=== PATIENT | female | born 1990 | race Caucasian/White ===

== ENCOUNTER 2017-01-06 13:31 | Emergency (ER) | payer MEDICAID, OTHER ==
[~2017-01-06] VITALS: Ht 160 cm; Wt 92.7 kg
[2017-01-06 13:34] VITALS: BP 120/78
[2017-01-06] MEDS ORDERED: KETOROLAC 30 MG/1 ML ONE (14:27)
[2017-01-06] MEDS ORDERED: HYDROcodone/APAP 5/325 TABLET ONE (14:27)
[2017-01-06] MEDS ORDERED: DIAZEPAM 5 MG TABLET ONE (14:27)
[2017-01-06] MEDS ORDERED: HYDROcodone/APAP 5/325 TABLET PO ONE (14:30)
[2017-01-06] MEDS ORDERED: KETOROLAC 30 MG/1 ML IM ONE (14:30)
[2017-01-06] MEDS ORDERED: DIAZEPAM 5 MG TABLET PO ONE (14:30)
== END 2017-01-06 15:14 | disposition home or self-care (01) ==
LOC: ED 15:00
DX: S39.012A Strain of muscle, fascia and tendon of lower back, initial encounter (principal); X58.XXXA Exposure to other specified factors, initial encounter; Y93.89 Activity, other specified; Y92.89 Other specified places as the place of occurrence of the external cause; Y99.8 Other external cause status
CPT/HCPCS: 96372; 99283; J1885

== ENCOUNTER 2018-02-07 16:13 | Inpatient (IN) | payer MEDICAID ==
[~2018-02-07] VITALS: Ht 160 cm; Wt 94.0 kg
[2018-02-07] MEDS ORDERED: ONDANSETRON 2MG/ML, 2ML ONE (16:47)
[2018-02-07] MEDS ORDERED: HYDROmorphone 2 MG/ML, 1ML ONE (16:47)
[2018-02-07 17:00] LABS: BASOPHILS # (AUTO) 0.01 x10^3/uL (0-0.1); BASOPHILS % (AUTO) 0 % (0-1); EOSINOPHILS # (AUTO) 0.07 x10^3/uL (0-0.4); EOSINOPHILS % (AUTO) 1 % (1-7); LYMPHOCYTES % (AUTO) 10 % (22-44); MD NO; MEAN CORPUSCULAR HEMOGLOBIN 32.4 pg (27.0-34.8); MEAN CORPUSCULAR HGB CONC 33.5 g/dL (32.4-35.8); MEAN CORPUSCULAR VOLUME 96.8 fL (80-100); MEAN PLATELET VOLUME 8.7 fL (7.4-10.4); MONOCYTES # (AUTO) 0.62 x10^3/uL (0.2-0.8); MONOCYTES % (AUTO) 5 % (2-9); NEUTROPHILS % (AUTO) 84 % (42-75); PLATELET COUNT 281 x10^3/uL (130-400); RED BLOOD COUNT 4.59 x10^6/uL (3.82-5.3); RED CELL DISTRIBUTION WIDTH 14.1 % (9.6-15.2)
[2018-02-07] MEDS ORDERED: ONDANSETRON 2MG/ML, 2ML IVPush ONE (17:00)
[2018-02-07] MEDS ORDERED: HYDROmorphone 2 MG/ML, 1ML IVPush PRN (17:00)
[2018-02-07] MEDS ORDERED: SODIUM CHLORIDE FLUSH 10ML SYR IVF ONE (17:00)
[2018-02-07 17:40] LABS: MICROSCOPIC INDICATED
[2018-02-07 17:45] LABS: CULTURE INDICATED? NO
[2018-02-07 17:53] LABS: ALBUMIN 3.5 g/dL (3.4-5.0); ANION GAP 9 mmol/L (5-15); CHLORIDE 102 mmol/L (98-107)
[2018-02-07 17:57] LABS: ALANINE AMINOTRANSFERASE 320 U/L (12-78); ALKALINE PHOSPHATASE 281 U/L (45-117); BILIRUBIN,TOTAL 0.9 mg/dL (0.2-1.0); CREATININE 0.57 mg/dL (0.55-1.02); TOTAL PROTEIN 7.7 g/dL (6.4-8.2)
[2018-02-07] MEDS ORDERED: OMNIPAQUE 350 MG/ML, 100ML BOTTLE ONE (18:25)
[2018-02-07] MEDS ORDERED: AMPICILLIN/SULBACTAM 3 GM in SODIUM CHLORIDE 0.9% 100 ML IVPB ONE (20:00)
[2018-02-07] MEDS ORDERED: PROMETHAZINE 25 MG/ML, 1ML IM PRN (20:30)
[2018-02-07] MEDS ORDERED: ONDANSETRON 2MG/ML, 2ML IVPush PRN (20:30)
[2018-02-07 21:05] VITALS: BP 113/63
[2018-02-07] MEDS: HYDROmorphone 2 MG/ML, 1ML IVPush PRN (21:18)
[2018-02-07] MEDS: D5%-0.9% NACL 1,000 ML IV SCH (21:18)
[2018-02-08 00:45] VITALS: BP 114/73
[2018-02-08] MEDS: AMPICILLIN/SULBACTAM 3 GM in SODIUM CHLORIDE 0.9% 100 ML IV SCH ×4 (02:02→19:39)
[2018-02-08] MEDS: HYDROmorphone 2 MG/ML, 1ML IVPush PRN ×5 (03:18→23:54)
[2018-02-08] MEDS: D5%-0.9% NACL 1,000 ML IV SCH ×3 (03:18→18:49)
[2018-02-08 05:01] LABS: BASOPHILS # (AUTO) 0.03 x10^3/uL (0-0.1); BASOPHILS % (AUTO) 0 % (0-1); EOSINOPHILS # (AUTO) 0.09 x10^3/uL (0-0.4); EOSINOPHILS % (AUTO) 1 % (1-7); LYMPHOCYTES # (AUTO) 0.93 x10^3/uL (1-3.4); LYMPHOCYTES % (AUTO) 10 % (22-44); MD NO; MEAN CORPUSCULAR HEMOGLOBIN 32.1 pg (27.0-34.8); MEAN CORPUSCULAR HGB CONC 33.7 g/dL (32.4-35.8); MEAN CORPUSCULAR VOLUME 95.4 fL (80-100); MEAN PLATELET VOLUME 8.3 fL (7.4-10.4); MONOCYTES # (AUTO) 0.78 x10^3/uL (0.2-0.8); MONOCYTES % (AUTO) 8 % (2-9); NEUTROPHILS # (AUTO) 7.95 x10^3/uL (1.8-6.8); NEUTROPHILS % (AUTO) 81 % (42-75); PLATELET COUNT 257 x10^3/uL (130-400); RED BLOOD COUNT 4.03 x10^6/uL (3.82-5.3); RED CELL DISTRIBUTION WIDTH 14.1 % (9.6-15.2)
[2018-02-08 05:07] LABS: ALBUMIN 2.9 g/dL (3.4-5.0); ANION GAP 7 mmol/L (5-15); CALCIUM 8.2 mg/dL (8.5-10.1); CHLORIDE 105 mmol/L (98-107)
[2018-02-08 05:12] LABS: ALANINE AMINOTRANSFERASE 268 U/L (12-78); ALKALINE PHOSPHATASE 239 U/L (45-117); BILIRUBIN,TOTAL 2.1 mg/dL (0.2-1.0); CREATININE 0.51 mg/dL (0.55-1.02); TOTAL PROTEIN 6.6 g/dL (6.4-8.2)
[2018-02-08 06:50] VITALS: BP 112/73
[2018-02-08] MEDS ORDERED: SUCCINYLCHOLINE 20 MG/ML, 10ML ONE (07:41)
[2018-02-08] MEDS ORDERED: PROPOFOL 10 MG/ML, 20ML ONE ×2 (07:41→08:33)
[2018-02-08] MEDS ORDERED: FENTANYL PF 100 MCG/2ML ONE (07:41)
[2018-02-08] MEDS ORDERED: LABETALOL 5MG/ML, 20ML IV PRN (08:00)
[2018-02-08] MEDS ORDERED: ALBUTEROL SULFATE 2.5 MG/3 ML NPPB PRN (08:00)
[2018-02-08] MEDS ORDERED: ONDANSETRON 2MG/ML, 2ML IV PRN (08:00)
[2018-02-08] MEDS ORDERED: MEPERIDINE/PF 25MG/0.5ML IVPush PRN (08:00)
[2018-02-08] MEDS ORDERED: OXYcodone 5 MG/5 ML ORAL.SOL UDC PO PRN (08:00)
[2018-02-08] MEDS ORDERED: EPHEDRINE 50 MG/ML, 1ML IVPush PRN (08:00)
[2018-02-08] MEDS ORDERED: HYDROmorphone 2 MG/ML, 1ML IV PRN (08:00)
[2018-02-08] MEDS ORDERED: FENTANYL PF 100 MCG/2ML IV PRN (08:00)
[2018-02-08] MEDS ORDERED: LORazepam 2 MG/ML, 1ML IVPush PRN (08:00)
[2018-02-08] MEDS ORDERED: OMNIPAQUE 350 MG/ML, 50 ML BOTTLE ONE (11:39)
[2018-02-08 13:38] VITALS: BP 108/61
[2018-02-08 18:42] VITALS: BP 92/50
[2018-02-09] MEDS: AMPICILLIN/SULBACTAM 3 GM in SODIUM CHLORIDE 0.9% 100 ML IV SCH ×2 (02:09→07:55)
[2018-02-09] MEDS: D5%-0.9% NACL 1,000 ML IV SCH (02:11)
[2018-02-09 03:33] VITALS: BP 95/68
[2018-02-09 05:35] LABS: ALANINE AMINOTRANSFERASE 186 U/L (12-78); ALBUMIN 2.8 g/dL (3.4-5.0); ANION GAP 7 mmol/L (5-15); CALCIUM 8.2 mg/dL (8.5-10.1); CHLORIDE 106 mmol/L (98-107); CREATININE 0.47 mg/dL (0.55-1.02)
[2018-02-09 05:38] LABS: ALKALINE PHOSPHATASE 204 U/L (45-117); BILIRUBIN,TOTAL 0.5 mg/dL (0.2-1.0); TOTAL PROTEIN 6.4 g/dL (6.4-8.2)
[2018-02-09 05:39] LABS: BASOPHILS # (AUTO) 0.05 x10^3/uL (0-0.1); BASOPHILS % (AUTO) 1 % (0-1); EOSINOPHILS # (AUTO) 0.21 x10^3/uL (0-0.4); EOSINOPHILS % (AUTO) 4 % (1-7); LYMPHOCYTES % (AUTO) 27 % (22-44); MD NO; MEAN CORPUSCULAR HEMOGLOBIN 32.4 pg (27.0-34.8); MEAN CORPUSCULAR HGB CONC 33.8 g/dL (32.4-35.8); MEAN CORPUSCULAR VOLUME 95.7 fL (80-100); MEAN PLATELET VOLUME 8.3 fL (7.4-10.4); MONOCYTES # (AUTO) 0.66 x10^3/uL (0.2-0.8); MONOCYTES % (AUTO) 12 % (2-9); NEUTROPHILS # (AUTO) 3.17 x10^3/uL (1.8-6.8); NEUTROPHILS % (AUTO) 57 % (42-75); PLATELET COUNT 221 x10^3/uL (130-400); RED BLOOD COUNT 3.87 x10^6/uL (3.82-5.3); RED CELL DISTRIBUTION WIDTH 13.7 % (9.6-15.2)
[2018-02-09] MEDS: HYDROmorphone 2 MG/ML, 1ML IVPush PRN ×2 (05:47→09:49)
[2018-02-09 07:42] VITALS: BP 104/64
[2018-02-09] MEDS ORDERED: CIPR500T87 PO (10:46)
[2018-02-09] MEDS ORDERED: METR500T PO (10:46)
[2018-02-09 12:54] VITALS: BP 109/69
== END 2018-02-09 15:05 | disposition home or self-care (01) | DRG 920 ==
LOC: SUATTDRO 20:03 → OR 20:06 → EDIP 20:14 → 4NOR 20:45
PROVIDERS: ADMIT Hospitalist; ATTEND Family Medicine
PROC: 0FC98ZZ Extirpation of Matter from Common Bile Duct, Via Natural or Artificial Opening Endoscopic (ICD-10-PCS; 2018-02-08)
PROC: BF101ZZ Fluoroscopy of Bile Ducts using Low Osmolar Contrast (ICD-10-PCS; 2018-02-08)
PROC: 0FPB8DZ Removal of Intraluminal Device from Hepatobiliary Duct, Via Natural or Artificial Opening Endoscopic (ICD-10-PCS; principal; 2018-02-08 08:00)
DX: T85.898A Other specified complication of other internal prosthetic devices, implants and grafts, initial encounter (principal); K80.31 Calculus of bile duct with cholangitis, unspecified, with obstruction; E66.9 Obesity, unspecified; F17.200 Nicotine dependence, unspecified, uncomplicated; K83.8 Other specified diseases of biliary tract; Y83.8 Other surgical procedures as the cause of abnormal reaction of the patient, or of later complication, without mention of misadventure at the time of the procedure; R74.0 Nonspecific elevation of levels of transaminase and lactic acid dehydrogenase [LDH]; Z68.36 Body mass index [BMI] 36.0-36.9, adult; Z90.49 Acquired absence of other specified parts of digestive tract; Y92.89 Other specified places as the place of occurrence of the external cause
CPT/HCPCS: 36415; 74328; 99285; J7042; 74177; 80053; 81001; 81025; 83605; 83690; 83735; 84100; 85025; 87040; 96365; 96375; G0378; J0295; J1170; J2405; J2704; J3010; Q9967; C1769; J0330

== ENCOUNTER 2018-02-14 08:31 | Emergency (ER) | payer MEDICAID ==
[~2018-02-14] VITALS: Ht 160 cm; Wt 91.3 kg
[~2018-02-14 08:31] MED LIST: CIPR500T87 PO; METR500T PO
[2018-02-14 08:35] VITALS: BP 114/56
== END 2018-02-14 09:26 | disposition home or self-care (01) ==
LOC: ED 09:18
DX: I80.8 Phlebitis and thrombophlebitis of other sites (principal); Z90.49 Acquired absence of other specified parts of digestive tract
CPT/HCPCS: 99283

== ENCOUNTER 2018-02-23 17:20 | Emergency (ER) | payer MEDICAID ==
[~2018-02-23] VITALS: Ht 160 cm; Wt 95.0 kg
[2018-02-23 17:31] VITALS: BP 128/80
[2018-02-23] MEDS ORDERED: NAPR220C2 PO (18:18)
[2018-02-23] MEDS ORDERED: IBUPROFEN 200 MG TABLET ONE (18:20)
[2018-02-23] MEDS ORDERED: IBUPROFEN 200 MG TABLET PO ONE (18:30)
== END 2018-02-23 18:43 | disposition home or self-care (01) ==
LOC: ED 18:02
DX: H92.01 Otalgia, right ear (principal); Z87.891 Personal history of nicotine dependence; Z90.49 Acquired absence of other specified parts of digestive tract
CPT/HCPCS: 99283

== ENCOUNTER 2018-03-19 22:17 | Emergency (ER) | payer MEDICAID ==
[~2018-03-19] VITALS: Ht 160 cm; Wt 92.2 kg
[~2018-03-19 22:17] MED LIST changes: +NAPR220C2 PO
[2018-03-19 22:20] VITALS: BP 123/76
[2018-03-19] MEDS ORDERED: KETOROLAC 30 MG/1 ML ONE (22:53)
[2018-03-19] MEDS ORDERED: DIPHENHYDRAMINE 25 MG CAPSULE ONE (22:53)
[2018-03-19] MEDS ORDERED: ACETAMINOPHEN 325 MG TABLET ONE (22:53)
[2018-03-19] MEDS ORDERED: PROCHLORPERAZINE 10MG TABLET ONE (22:56)
[2018-03-19] MEDS ORDERED: ACETAMINOPHEN 325 MG TABLET PO ONE (23:00)
[2018-03-19] MEDS ORDERED: DIPHENHYDRAMINE 25 MG CAPSULE PO ONE (23:00)
[2018-03-19] MEDS ORDERED: PROCHLORPERAZINE 10MG TABLET PO ONE (23:00)
[2018-03-19] MEDS ORDERED: KETOROLAC 30 MG/1 ML IM ONE (23:00)
== END 2018-03-19 23:56 | disposition home or self-care (01) ==
LOC: ED 23:50
DX: G43.009 Migraine without aura, not intractable, without status migrainosus (principal); R05 Cough; Z90.49 Acquired absence of other specified parts of digestive tract
CPT/HCPCS: 71046; 96372; 99284; J1885; Q0163; Q0164

== ENCOUNTER 2018-04-02 06:28 | Emergency (ER) | payer MEDICAID ==
[~2018-04-02] VITALS: Ht 160 cm; Wt 94.7 kg
[2018-04-02 06:29] VITALS: BP 117/80
--- NOTE | 2018-04-02 06:42 | NUR ---
PT PLACED IN A GOWN AND GIVEN A WARM BLANKET. PT AWAITING ERP AND ORDERS.
--- NOTE | 2018-04-02 06:52 | NUR ---
REPORT FROM SUZANNE GRADY
[2018-04-02] MEDS ORDERED: KETOROLAC 30 MG/1 ML ONE (07:00)
[2018-04-02] MEDS: ALBUTEROL/IPRATROPIUM 2.5MG/0.5MG, 3 ML NPPB ONE (07:00)
[2018-04-02] MEDS ORDERED: ALBUTEROL/IPRATROPIUM 2.5MG/0.5MG, 3 ML ONE (07:02)
[2018-04-02] MEDS: KETOROLAC 30 MG/1 ML IM ONE (07:19)
== END 2018-04-02 07:54 | disposition home or self-care (01) ==
LOC: ED 07:43
DX: J98.01 Acute bronchospasm (principal); J02.8 Acute pharyngitis due to other specified organisms; B34.9 Viral infection, unspecified; Z90.49 Acquired absence of other specified parts of digestive tract
CPT/HCPCS: 71046; 94640; 96372; 99283; J1885; J7512; J7620

== ENCOUNTER 2018-05-16 13:42 | Emergency (ER) | payer MEDICAID ==
[~2018-05-16] VITALS: Ht 160 cm; Wt 94.8 kg
[2018-05-16 13:54] VITALS: BP 112/66
--- NOTE | 2018-05-16 15:34 | NUR ---
Patient/Caregiver given discharge instructions and they have confirmed that they understand the instructions. Patient ambulatory with steady gait.
== END 2018-05-16 15:35 | disposition home or self-care (01) ==
LOC: ED 15:15
DX: S60.211A Contusion of right wrist, initial encounter (principal); F17.200 Nicotine dependence, unspecified, uncomplicated; X58.XXXA Exposure to other specified factors, initial encounter; Y93.89 Activity, other specified; Y92.89 Other specified places as the place of occurrence of the external cause; Y99.8 Other external cause status
CPT/HCPCS: 99283

== ENCOUNTER 2018-06-04 01:41 | Emergency (ER) | payer MEDICAID ==
[~2018-06-04] VITALS: Ht 167.6 cm; Wt 70.0 kg
[2018-06-04 01:43] VITALS: BP 142/76
--- NOTE | 2018-06-04 01:43 | NUR ---
PT BIB [facility] C/O SCIATIC PAIN W/ HX OF SAME. PT AMB INTO LOBBY FROM [facility]. ALSO C/O OF R EAR PAIN. CALL LIGHT IN REACH
[2018-06-04] MEDS ORDERED: METHOCARBAMOL 750 MG TABLET PO ONE (02:30)
[2018-06-04] MEDS ORDERED: AMOXICILLIN/CLAV 875-125MG TABLET PO SCH (02:30)
[2018-06-04] MEDS ORDERED: IBUPROFEN 600 MG TABLET PO ONE (02:30)
[2018-06-04] MEDS ORDERED: AMOXICILLIN/CLAV 875-125MG TABLET ONE (02:31)
[2018-06-04] MEDS ORDERED: METHOCARBAMOL 750 MG TABLET ONE (02:31)
[2018-06-04] MEDS ORDERED: IBUPROFEN 600 MG TABLET ONE (02:31)
--- NOTE | 2018-06-04 02:38 | NUR ---
PT MEDICATED PER eMAR
--- NOTE | 2018-06-04 02:43 | NUR ---
Patient/Caregiver given discharge instructions and they have confirmed that they understand the instructions. Patient ambulatory with steady gait.
== END 2018-06-04 02:45 | disposition home or self-care (01) ==
LOC: ED 02:15
DX: M54.41 Lumbago with sciatica, right side (principal); H66.91 Otitis media, unspecified, right ear; G89.29 Other chronic pain
CPT/HCPCS: 99284

== ENCOUNTER 2018-06-10 18:05 | Inpatient (IN) | payer MEDICAID ==
[~2018-06-10] VITALS: Ht 160 cm; Wt 96.3 kg
[2018-06-10] MEDS ORDERED: ONDANSETRON 2MG/ML, 2ML IVPush ONE ×2 (18:30→19:30)
[2018-06-10] MEDS ORDERED: SODIUM CHLORIDE FLUSH 10ML SYR IVF ONE (18:30)
[2018-06-10 18:44] LABS: BASOPHILS # (AUTO) 0.02 x10^3/uL (0-0.1); BASOPHILS % (AUTO) 0 % (0-1); EOSINOPHILS # (AUTO) 0.22 x10^3/uL (0-0.4); EOSINOPHILS % (AUTO) 2 % (1-7); LYMPHOCYTES # (AUTO) 2.23 x10^3/uL (1-3.4); LYMPHOCYTES % (AUTO) 15 % (22-44); MD NO; MEAN CORPUSCULAR HEMOGLOBIN 31.5 pg (27.0-34.8); MEAN CORPUSCULAR HGB CONC 33.1 g/dL (32.4-35.8); MEAN CORPUSCULAR VOLUME 95.3 fL (80-100); MEAN PLATELET VOLUME 8.1 fL (7.4-10.4); MONOCYTES # (AUTO) 0.72 x10^3/uL (0.2-0.8); MONOCYTES % (AUTO) 5 % (2-9); NEUTROPHILS # (AUTO) 11.86 x10^3/uL (1.8-6.8); NEUTROPHILS % (AUTO) 79 % (42-75); PLATELET COUNT 356 x10^3/uL (130-400); RED BLOOD COUNT 4.63 x10^6/uL (3.82-5.3); RED CELL DISTRIBUTION WIDTH 14.3 % (9.6-15.2)
[2018-06-10 18:53] LABS: ALBUMIN 3.7 g/dL (3.4-5.0); ANION GAP 8 mmol/L (5-15); CALCIUM 8.8 mg/dL (8.5-10.1); CHLORIDE 104 mmol/L (98-107); CREATININE 0.53 mg/dL (0.55-1.02)
[2018-06-10] MEDS ORDERED: ONDANSETRON 2MG/ML, 2ML ONE (18:59)
[2018-06-10 19:06] LABS: ALANINE AMINOTRANSFERASE 303 U/L (12-78)
[2018-06-10 19:07] LABS: ALKALINE PHOSPHATASE 221 U/L (45-117); BILIRUBIN,TOTAL 0.9 mg/dL (0.2-1.0); TOTAL PROTEIN 7.6 g/dL (6.4-8.2)
[2018-06-10] MEDS ORDERED: AMOX875T PO (19:09)
[2018-06-10] MEDS ORDERED: METH500T97 PO (19:09)
[2018-06-10 19:28] LABS: MICROSCOPIC INDICATED
[2018-06-10] MEDS ORDERED: HYDROmorphone 1 MG/ML, 1ML ONE (19:34)
[2018-06-10] MEDS: HYDROmorphone 2 MG/ML, 1ML IVPush PRN ×2 (19:36→21:44)
--- NOTE | 2018-06-10 19:37 | NUR ---
MEDICATED FPOR PAIN ON RETURN FROM CT
[2018-06-10] MEDS ORDERED: OMNIPAQUE 350 MG/ML, 100ML BOTTLE ONE (19:38)
[2018-06-10 19:45] LABS: CULTURE INDICATED? NO
[2018-06-10] MEDS ORDERED: AMPICILLIN/SULBACTAM 3 GM in SODIUM CHLORIDE 0.9% 100 ML IV ONE (20:00)
--- NOTE | 2018-06-10 20:28 | NUR ---
NOT VOMITING, RESTING WITH EYES CLOSED. PT STATES PAIN IMPROVED BUT STILL 7/10
[2018-06-10] MEDS ORDERED: SODIUM CHLORIDE FLUSH 10ML SYR IVF PRN (20:30)
[2018-06-10] MEDS ORDERED: CEFTRIAXONE PMX 2GM/50ML 50 ML IV SCH (21:00)
[2018-06-10] MEDS ORDERED: ONDANSETRON 2MG/ML, 2ML IVPush PRN (21:00)
[2018-06-10] MEDS ORDERED: ACETAMINOPHEN 325 MG TABLET PO PRN (21:00)
[2018-06-10] MEDS ORDERED: BISACODYL 10 MG SUPP PR PRN (21:00)
--- NOTE | 2018-06-10 21:04 | NUR ---
REPORT TO CAROLYN GRADY
--- NOTE | 2018-06-10 21:11 | NUR ---
ULTRASOUND GUIDED IV ESTABLISHED BY TRINA GRADY WITH CULTURES OBTAINED. PT TO BE TRANSPORTED UPSTAIRS
--- NOTE | 2018-06-10 21:27 | NUR ---
PT TAKEN TO FLOOR IN [facility] WITH TECH.
[2018-06-10] MEDS: morphine SULFATE 10 MG/ML, 1ML IVPush PRN ×2 (21:49→22:11)
[2018-06-10] MEDS: SODIUM CHLORIDE 0.9% 1,000 ML IV SCH (21:50)
[2018-06-10 22:00] VITALS: BP 115/71
[2018-06-10] MEDS: NICOTINE 7 MG/24 HR PATCH.TD24 TD SCH (22:00)
[2018-06-11] MEDS: morphine SULFATE 10 MG/ML, 1ML IVPush PRN ×4 (01:20→14:24)
[2018-06-11 02:37] VITALS: BP 102/49
[2018-06-11] MEDS: SODIUM CHLORIDE 0.9% 1,000 ML IV SCH ×2 (06:17→21:18)
[2018-06-11 06:42] LABS: ALANINE AMINOTRANSFERASE 415 U/L (12-78); ALBUMIN 3.2 g/dL (3.4-5.0); ANION GAP 4 mmol/L (5-15); CALCIUM 8.2 mg/dL (8.5-10.1); CHLORIDE 108 mmol/L (98-107)
[2018-06-11 06:45] LABS: ALKALINE PHOSPHATASE 234 U/L (45-117); BASOPHILS # (AUTO) 0.05 x10^3/uL (0-0.1); BASOPHILS % (AUTO) 0 % (0-1); BILIRUBIN,TOTAL 3.3 mg/dL (0.2-1.0); EOSINOPHILS # (AUTO) 0.14 x10^3/uL (0-0.4); EOSINOPHILS % (AUTO) 1 % (1-7); LYMPHOCYTES # (AUTO) 1.74 x10^3/uL (1-3.4); LYMPHOCYTES % (AUTO) 15 % (22-44); MD NO; MEAN CORPUSCULAR HEMOGLOBIN 31.4 pg (27.0-34.8); MEAN CORPUSCULAR HGB CONC 33.2 g/dL (32.4-35.8); MEAN CORPUSCULAR VOLUME 94.4 fL (80-100); MEAN PLATELET VOLUME 8.2 fL (7.4-10.4); MONOCYTES # (AUTO) 1.04 x10^3/uL (0.2-0.8); MONOCYTES % (AUTO) 9 % (2-9); NEUTROPHILS % (AUTO) 75 % (42-75); PLATELET COUNT 327 x10^3/uL (130-400); RED BLOOD COUNT 4.26 x10^6/uL (3.82-5.3); RED CELL DISTRIBUTION WIDTH 14.4 % (9.6-15.2); TOTAL PROTEIN 6.8 g/dL (6.4-8.2)
[2018-06-11 08:15] VITALS: BP 95/55
[2018-06-11 09:47] LABS: INTERNATIONAL NORMALIZED RATIO 1.05 (0.93-1.1)
[2018-06-11] MEDS ORDERED: ONDANSETRON 2MG/ML, 2ML ONE (12:09)
[2018-06-11] MEDS ORDERED: GLYCOPYRROLATE 0.2MG/1ML, 5ML ONE (12:09)
[2018-06-11] MEDS ORDERED: ROCURONIUM 10 MG/ML,10ML ONE (12:09)
[2018-06-11] MEDS ORDERED: NEOSTIGMINE 1 MG/ML, 10ML ONE (12:09)
[2018-06-11] MEDS ORDERED: NALOXONE 0.4 MG/ML, 1ML ONE (12:09)
[2018-06-11] MEDS ORDERED: PROPOFOL 10 MG/ML, 20ML ONE (12:09)
[2018-06-11] MEDS ORDERED: PROMETHAZINE 25 MG/ML, 1ML IV PRN (12:30)
[2018-06-11] MEDS ORDERED: OXYcodone 5 MG/5 ML ORAL.SOL UDC PO PRN (12:30)
[2018-06-11] MEDS ORDERED: HYDROmorphone 2 MG/ML, 1ML IVPush PRN (12:30)
[2018-06-11] MEDS ORDERED: MEPERIDINE/PF 25MG/0.5ML IVPush PRN (12:30)
[2018-06-11] MEDS ORDERED: FENTANYL PF 100 MCG/2ML IV PRN (12:30)
[2018-06-11] MEDS ORDERED: ACETAMINOPHEN 325 MG TABLET PO PRN (12:30)
[2018-06-11] MEDS ORDERED: ALBUTEROL SULFATE 2.5 MG/3 ML NPPB PRN (12:30)
[2018-06-11] MEDS ORDERED: LORazepam 2 MG/ML, 1ML IVPush PRN (12:30)
[2018-06-11] MEDS ORDERED: HALOPERIDOL 5 MG/ML IV PRN (12:30)
[2018-06-11] MEDS ORDERED: HALOPERIDOL 5 MG/ML ONE (13:12)
[2018-06-11 14:12] VITALS: BP 97/54
[2018-06-11] MEDS: PIPERACILLIN/TAZO/PMX 3.375GM 50 ML IV SCH ×2 (14:28→21:18)
[2018-06-11] MEDS ORDERED: OXYcodone IR 5MG TABLET ONE (17:19)
[2018-06-11] MEDS: OXYcodone IR 5MG TABLET PO PRN ×2 (17:21→23:17)
[2018-06-11 19:59] VITALS: BP 98/58
[2018-06-11] MEDS: NICOTINE 7 MG/24 HR PATCH.TD24 TD SCH (21:00)
[2018-06-12 00:13] VITALS: BP 94/53
[2018-06-12] MEDS: PIPERACILLIN/TAZO/PMX 3.375GM 50 ML IV SCH (02:24)
[2018-06-12 04:22] VITALS: BP 113/51
[2018-06-12 05:50] LABS: BASOPHILS # (AUTO) 0.05 x10^3/uL (0-0.1); BASOPHILS % (AUTO) 1 % (0-1); EOSINOPHILS # (AUTO) 0.35 x10^3/uL (0-0.4); EOSINOPHILS % (AUTO) 6 % (1-7); LYMPHOCYTES # (AUTO) 2.44 x10^3/uL (1-3.4); LYMPHOCYTES % (AUTO) 38 % (22-44); MD NO; MEAN CORPUSCULAR HEMOGLOBIN 31.9 pg (27.0-34.8); MEAN CORPUSCULAR HGB CONC 33.9 g/dL (32.4-35.8); MEAN CORPUSCULAR VOLUME 94.3 fL (80-100); MEAN PLATELET VOLUME 8.5 fL (7.4-10.4); MONOCYTES # (AUTO) 0.38 x10^3/uL (0.2-0.8); MONOCYTES % (AUTO) 6 % (2-9); NEUTROPHILS # (AUTO) 3.13 x10^3/uL (1.8-6.8); NEUTROPHILS % (AUTO) 49 % (42-75); PLATELET COUNT 256 x10^3/uL (130-400); RED BLOOD COUNT 3.84 x10^6/uL (3.82-5.3); RED CELL DISTRIBUTION WIDTH 14.6 % (9.6-15.2)
[2018-06-12 06:00] LABS: ALANINE AMINOTRANSFERASE 265 U/L (12-78); ALBUMIN 2.8 g/dL (3.4-5.0); ANION GAP 5 mmol/L (5-15); CALCIUM 8.1 mg/dL (8.5-10.1); CHLORIDE 109 mmol/L (98-107); CREATININE 0.51 mg/dL (0.55-1.02)
[2018-06-12 06:02] LABS: ALKALINE PHOSPHATASE 188 U/L (45-117); TOTAL PROTEIN 6.3 g/dL (6.4-8.2)
[2018-06-12] MEDS: SODIUM CHLORIDE 0.9% 1,000 ML IV SCH (06:03)
[2018-06-12 07:35] VITALS: BP 100/76
[2018-06-12] MEDS: OXYcodone IR 5MG TABLET PO PRN ×2 (08:10→14:08)
[2018-06-12] MEDS ORDERED: AMOXICILLIN/CLAV 875-125MG TABLET PO SCH (09:00)
[2018-06-12] MEDS ORDERED: AMOX1TAB12 PO (10:08)
[2018-06-12 14:08] VITALS: BP 108/75
[2018-06-12] MEDS ORDERED: SODIUM CHLORIDE 0.9% 1,000 ML IV SCH (20:44)
== END 2018-06-12 14:50 | disposition home or self-care (01) | DRG 446 ==
LOC: ED 20:30 → EDIP 20:44 → 4NOR 21:35 → DCLOUNGE 06-12 14:38
PROVIDERS: ADMIT Family Medicine; ATTEND Family Medicine
PROC: 0F798ZZ Dilation of Common Bile Duct, Via Natural or Artificial Opening Endoscopic (ICD-10-PCS; 2018-06-11)
PROC: BF101ZZ Fluoroscopy of Bile Ducts using Low Osmolar Contrast (ICD-10-PCS; principal; 2018-06-11 12:00)
DX: K80.31 Calculus of bile duct with cholangitis, unspecified, with obstruction (principal); G43.909 Migraine, unspecified, not intractable, without status migrainosus; G89.29 Other chronic pain; M54.31 Sciatica, right side; R00.1 Bradycardia, unspecified; F17.210 Nicotine dependence, cigarettes, uncomplicated; F31.9 Bipolar disorder, unspecified; E66.9 Obesity, unspecified; Z68.37 Body mass index [BMI] 37.0-37.9, adult; Z86.72 Personal history of thrombophlebitis; Z87.442 Personal history of urinary calculi; Z59.0 Homelessness; Z90.49 Acquired absence of other specified parts of digestive tract; Z90.81 Acquired absence of spleen
CPT/HCPCS: 36415; 74328; 99285; J3490; 74177; 74181; 80053; 80307; 81001; 83605; 84703; 85025; 85610; 87040; 96374; G0378; J0696; J1170; J2310; J2405; J2543; J2704; J2710; Q9967; C1769; J2270; J7030

== ENCOUNTER 2018-06-18 13:35 | Emergency (ER) | payer MEDICAID ==
[~2018-06-18] VITALS: Ht 160 cm; Wt 95.4 kg
[~2018-06-18 13:35] MED LIST changes: +AMOX1TAB12 PO; +AMOX875T PO; +METH500T97 PO
[2018-06-18 13:52] VITALS: BP 120/65
== END 2018-06-18 14:39 | disposition home or self-care (01) ==
LOC: ED 14:33
DX: K02.9 Dental caries, unspecified (principal); G89.29 Other chronic pain; Z90.49 Acquired absence of other specified parts of digestive tract
CPT/HCPCS: 99283

== ENCOUNTER 2018-08-18 00:58 | Emergency (ER) | payer MEDICAID ==
[~2018-08-18] VITALS: Ht 160 cm; Wt 89.9 kg
[2018-08-18 00:59] VITALS: BP 128/60
[2018-08-18] MEDS ORDERED: KETOROLAC 30 MG/1 ML IM ONE (01:30)
[2018-08-18] MEDS ORDERED: KETOROLAC 30 MG/1 ML ONE (01:48)
--- NOTE | 2018-08-18 02:40 | NUR ---
PT D/C WITH D/C SUMMARY AND TEX BANDAGE. PT WHEELED TO REGISTRATION DESK WITH STEADY GAIT FOR D/C HOME. PT DENIES ANY OTHER NEEDS PERTAINING TO THIS VISIT.
== END 2018-08-18 02:55 | disposition home or self-care (01) ==
LOC: ED 01:49
DX: M25.561 Pain in right knee (principal); G89.29 Other chronic pain; G43.909 Migraine, unspecified, not intractable, without status migrainosus
CPT/HCPCS: 73564; 96372; 99283; J1885

== ENCOUNTER 2019-05-22 03:59 | Emergency (ER) | payer MEDICAID ==
[~2019-05-22] VITALS: Ht 160 cm; Wt 85.5 kg
[2019-05-22 05:35] VITALS: BP 128/65
== END 2019-05-22 05:37 | disposition home or self-care (01) ==
LOC: ED 05:32
DX: H66.011 Acute suppurative otitis media with spontaneous rupture of ear drum, right ear (principal); Z76.0 Encounter for issue of repeat prescription; G89.29 Other chronic pain; Z90.49 Acquired absence of other specified parts of digestive tract
CPT/HCPCS: 99283

== ENCOUNTER 2019-06-15 07:00 | Emergency (ER) | payer MEDICAID ==
[~2019-06-15] VITALS: Ht 160 cm; Wt 83.5 kg
[2019-06-15 07:03] VITALS: BP 121/74
[2019-06-15] MEDS ORDERED: KETOROLAC 30 MG/1 ML IM ONE (07:30)
[2019-06-15] MEDS ORDERED: KETOROLAC 30 MG/1 ML ONE (07:35)
--- NOTE | 2019-06-15 07:44 | NUR ---
Patient refusing ice pack medicated per emar for tibial pain rated at 6/10 Provided with warm blanket/boris paws heater
--- NOTE | 2019-06-15 08:39 | NUR ---
PAIN IMPROVED TO 2/10 POST MEDICATION ABLE TO AMBULATE INDEPENDENTLY IN [facility] PROVIDER WITH ICE PACK/TEX WRAP PER ORDER REVIEWED DISCHARGE POC
== END 2019-06-15 08:43 | disposition home or self-care (01) ==
LOC: ED 08:37
DX: S96.912A Strain of unspecified muscle and tendon at ankle and foot level, left foot, initial encounter (principal); X58.XXXA Exposure to other specified factors, initial encounter; Y93.89 Activity, other specified; Y92.89 Other specified places as the place of occurrence of the external cause; Y99.8 Other external cause status
CPT/HCPCS: 73590; 73610; 96372; 99284; J1885